=== PATIENT | female | born 1950 | race Caucasian/White ===

== ENCOUNTER → 2018-01-25 14:55 | Outpatient (CLI) | payer BC, MEDICARE, SELFPAY ==
--- NOTE | 2018-01-25 15:03 | XR_ITS ---
XR hip LT 2-3V w/pelvis HISTORY: ITS.REASON: LT HIP PAIN ORDERING PHYSICIAN: Bharath Rosario MD PATIENT AGE: 67 years COMPARISON: FINDINGS: Mild osteoarthritic changes involve the left hip. There is decrease in the joint space superiorly with osteophyte formation. There are osteoarthritic changes also at symphysis pubis with minimal osteoarthritis of the right hip and SI joints. No fracture or dislocation. No lytic or blastic change. 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
== END ==
PROVIDERS: PCP Family Medicine; Visit Provider Family Medicine
DX: M25.552 Pain in left hip (principal)
CPT/HCPCS: 73502

== ENCOUNTER → 2019-03-10 10:31 | Outpatient (CLI) | payer BC, MEDICARE, SELFPAY ==
--- NOTE | 2019-03-10 10:42 | XR_ITS ---
XR DEXA axial skeleton HISTORY: ITS.REASON: POST MENOPAUSAL ORDERING PHYSICIAN: Bharath Rosario MD PATIENT AGE: 68 years COMPARISON: None FINDINGS: The BMD measured at the Right femoral neck is 0.748 g/cm squared with a T score of -2.1. This is considered Osteopenic according to the World Health Organization criteria. Fracture risk is Moderate. Treatment is advised. IMPRESSION: Osteopenia with moderate fracture risk. Treatment is advised. Suggest follow-up exam February 2021
== END ==
PROVIDERS: PCP Family Medicine; Visit Provider Family Medicine
DX: Z78.0 Asymptomatic menopausal state (principal)
CPT/HCPCS: 77080

== ENCOUNTER → 2019-09-21 06:12 | Outpatient (CLI) | payer BC, MEDICARE, SELFPAY ==
--- NOTE | 2019-09-21 | CA_ITS ---
APPROVED REPORT Exam: Pharmacologic Technologist: shantanu melvin, Ht: 5 ft 0 in Wt: 170 lbs BSA: 1.74 m2 HR: 75 bpm BP: 185/101 mmHg Rhythm: NSR,OCCASIONAL PVC Indications: SOB Medical History Medical History: Hyperlipidemia, HTN, SOB Medications: Lisinopril,,,,, Lipitor,,,,, MeLOXICAM,,,,, DulOXETINE,,,,, Metopolol,,,,, Atiamt/hctz,,,,, Allergies: No known drug allergies Cardiac Risk Factors: HTN, Hyperlipidemia, SOB Stress Test Details Test: LEXISCAN HR Resting HR: 69 bpm Max Heart Rate (APMHR): 150 bpm Max HR Achieved: 96 bpm Target HR (85% APMHR): 127 bpm % of APMHR: 64 Recovery HR: 85 bpm BP Resting BP: 185.0/101.0 mmHg Max BP: 185.0/101.0 mmHg Recovery BP: 154.0/99.0 mmHg ECG Resting ECG: NSR,OCCASIONAL PVC Clinical Exercise duration: 04:04 min Highest Stage Achieved: Exercise capacity: 1.0 METs Stress ECG Conclusion SWITCHED FROM EXERCISE DUE TO LIMITED EXERCISE TOLERANCE. ONLY ABLE TO WALK 1 MINUTE ON SISSY PROTOCOL. STOPPING BECAUSE OF SOA. DURING INFUSION PATIENT HAD SOA,MILD NAUSEA AND MILD MALAISE. NO CHEST PAIN. NO ARRHYTHMIAS/ECTOPY. NO SIGNIFICANT ST-T CHANGES. UNREMARKABLE LEXISCAN STRESS. MYOVIEW IMAGES REPORTED SEPARATELY. Electronically signed by : Subhash Saunders, 09/26/2019 15:33:22
--- NOTE | 2019-09-21 06:40 | NM_ITS ---
APPROVED REPORT Exam: Nuclear Stress Test Indication: ANGINA,FATIGUE,SOA Patient Location: Outpatient Stress Tech: Radha Alexandra [place] Tech:Silvana Shi RANJEETSelma RT(R)(N) Ht: 5 ft 0 in Wt: 170 lbs Bra Size: 38 B HR: 75 bpm BP: 185/101 mmHg BSA: 1.74 m2 History: ANGINA,FATIGUE,SOA Procedure: Patient received a 0.4 mg of intravenous Lexiscan, resting heart rate 75 bpm, resting blood pressure 185/101 mmHg, with Lexiscan maximum heart rate achived was 93 bpm which is Less than 85 % of the maximum predicted heart rate and blood pressure was 167/102 mmHg. With Lexiscan, patient denied any complaint of chest pain. Electrocardiogram Resting electrocardiogram showed sinus rhythm, with Lexiscan there is less than 1.[address] segment depression noted from the baseline EKG. The EKG portion of the Lexiscan Myoview is nondiagnostic. Cardiac Stress and Resting SPECT Images: Cardiac Stress and Resting SPECT images were obtained using technetium 99m Myoview 32.2 mCi stress and 9.74 mCi at rest. Gated SPECT for analysis of segmental wall motion and calculation of the ejection fraction also done. Cardiac stress and resting SPECT images show uniform myocardial activity without segmental perfusion abnormality, computer derived ejection fraction is over 65% with no regional wall motion abnormality, right ventricle is normal size and contractility. Conclusion: 1. The EKG portion of the Lexiscan Myoview is nondiagnostic. 2. No scintigraphic evidence of reversible ischemia seen, computer derived ejection fraction is over 65% with no regional wall motion abnormality, right ventricle is normal size and contractility. 3. Normal Lexiscan Myoview study. Electronically signed by : Subhash Saunders, 09/29/2019 11:52:22
--- NOTE | 2019-09-21 08:56 | HMH.ITSHM ---
Current Home Medications as stated by this patient Cleopatra Carpenter or hospital insurance representative. [] METOPROLOL MELOXICAM TRIMT/HCTZ DULOXETINE LISINOPIRL ATORVASTATIN
== END ==
PROVIDERS: PCP Family Medicine; Visit Provider Family Medicine
DX: I20.8 Other forms of angina pectoris (principal)
CPT/HCPCS: 78452; 93017; A9502; J2785

== ENCOUNTER → 2019-10-04 13:27 | Outpatient (CLI) | payer BC, MEDICARE, SELFPAY ==
--- NOTE | 2019-10-04 13:39 | XR_ITS ---
PROCEDURE: XR CHEST 2V CLINICAL HISTORY: SHORTNESS OF BREATH Shortness of breath and cough, former smoker COMPARISON: CXR CHEST(2 VIEWS-NOT PORTABLE) from 02/13/2016 FINDINGS: The cardiomediastinal silhouette and pulmonary vascularity are within normal limits. There is a left-sided breast implant which causes some attenuation of the underlying lungs. This is not significantly changed. No lobar consolidation or collapse. No acute bony abnormalities. IMPRESSION: No acute findings. Dictated by: Cedric Stone MD 10/04/2019 14:02 Electronically signed by Cedric Stone MD in [place] 10/04/2019 14:02
== END ==
PROVIDERS: PCP Family Medicine; Visit Provider Family Medicine
DX: R06.02 Shortness of breath (principal)
CPT/HCPCS: 71046

== ENCOUNTER 2020-09-09 00:59 | Emergency (ER) | payer BC, MEDICARE, SELFPAY ==
[2020-09-09] VITALS (10 sets, daily range): BP systolic 111–193; BP diastolic 70–118; PULSE 61–75; RESP 17–28; TEMP 36.9–37.1; O2SAT 89–96; BMI 35.2
--- NOTE | 2020-09-09 | ECG_ITS ---
APPROVED REPORT Exam: Resting ECG HR:68 bpm ECG Measurements Heart Rate 68 AXES OR 178 P 43 QRSd 86 QRS 70 QT 398 T 88 QTc 423 Conclusion Normal sinus rhythm Normal ECG Electronically signed by : Alhaji Mccarthy, 09/09/2020 19:09:23
--- NOTE | 2020-09-09 01:02 | XR_ITS ---
PROCEDURE: XR CHEST 2V CLINICAL HISTORY: SOA Shortness of air. History of breast cancer COMPARISON: No exams were available for comparison FINDINGS: Borderline cardiomegaly. The lungs are clear without infiltrates, suspicious nodules, or pleural effusions. Fibrotic changes are present in the left perihilar region. Prior left mastectomy with breast implant Degenerative change thoracic spine IMPRESSION: Borderline cardiomegaly otherwise negative Dictated by: Cedric Stone MD 09/09/2020 05:22 Cedric Stone MD in [place] 09/09/2020 05:22
[2020-09-09 01:20] LABS: ABG Base Excess 4.9 mmol/L (-2.4-2.3); ABG HCO3 29.3 mmhg (22.0-26.0); ABG Oxygen Saturation 93 % (90-100); ABG PCO2 45.4 mmhg (35.0-45.0); ABG PH 7.43 mmol/L (7.35-7.45); ABG PO2 63.4 mmhg (80-100); ABG TCO2 30.6 mmhg (23-27)
[2020-09-09 01:20] LABS: Basophils # 0.1 K/mm3 (0-0.2); Basophils % 0.9 % (0.1-2.0); Eosinophils # 0.4 K/mm3 (0.0-0.4); Hematocrit 45.7 % (37.0-47.0); Hemoglobin 15.1 g/dL (12.2-16.2); Lymphocytes # 3.8 K/mm3 (0.7-4.5); Lymphocytes % 31.3 % (10-50); Mean Corpuscular HGB Conc 33.1 g/dL (31.8-35.4); Mean Corpuscular Hemoglobin 32.3 pg (27.0-31.2); Mean Corpuscular Volume 97.6 fl (81-99); Mean Platelet Volume 8.5 fl (7.4-10.4); Monocytes # 0.9 K/mm3 (0.1-1.0); Monocytes % 7.1 % (1.7-9.3); Neutrophils % 57.8 % (37.0-80.0); Platelet Count 265 K/mm3 (142-424); Red Blood Count 4.69 M/mm3 (4.20-5.40); Red Cell Distribution Width 12.8 % (11.5-17.5); White Blood Count 12.1 K/mm3 (4.8-10.8)
[2020-09-09 01:21] LABS: Allen's Test Y; Oxygen R/A %; Source R/R
[2020-09-09 01:35] LABS: Lactic Acid 1.7 mmol/L (0.7-2.1)
[2020-09-09 01:36] LABS: Alanine Aminotransferase 27 U/L (12-78); Albumin Level 4.4 g/dl (3.5-5.0); Albumin/Globulin Ratio 1.4 (1.1-1.8); Alkaline Phosphatase 79 U/L (38-126); Anion Gap 12.4 mEq/L (5-15); Aspartate Amino Transferase 34 U/L (14-36); Bilirubin,Total 0.3 mg/dl (0.2-1.3); Blood Urea Nitrogen 26 mg/dl (7-17); Calcium 9.6 mg/dl (8.4-10.2); Carbon Dioxide 32 mmol/L (22.0-30.0); Chloride 99 mmol/L (98-107); Creatinine Clearance Estimated 67 mL/min (50-200); Estimated Glomerular Filt Rate 55 ml/min (>60); GFR (African American) 66 ML/MIN (>60); Globulin 3.1 g/dL (1.3-3.2); Glucose 142 mg/dl (74-100); Potassium 4.4 mmoL/L (3.5-5.1); Sodium 139 mmol/L (136-145); Total Protein,Serum 7.5 g/dl (6.3-8.2)
[2020-09-09 01:42] LABS: C-Reactive Protein 3.3 mg/L (0-4)
--- NOTE | 2020-09-09 01:47 | HMH.EDSOB ---
ED Disposition Clinical Impression: Hypertensive emergency Dyspnea Qualifiers: Dyspnea type: shortness of breath Qualified Code(s): R06.02 - Shortness of breath Disposition: Home, Self-Care Condition on Discharge: Good Instructions: DI for Shortness of Breath Additional Instructions: see pcp for follow up Referrals: Bharath Rosario MD [Primary Care Provider] - - Critical Care Critical Care Time: No Attestation: On 09/09/20, the high probability of a clinically significant, sudden or life threatening deterioration of the following system(s) required my full and direct attention, intervention and personal management. The time I documented below is in addition to time spent performing reported procedures but includes the following listed in this critical care notation. Medical Decision Making - Medical Records Medical records reviewed: Yes: I reviewed the patient's medical records. - Kareem Inquiry Pt receiving controlled substance: No Vital Signs: 09/09/20 00:59 09/09/20 01:30 09/09/20 02:00 Temperature 98.8 F Temperature Source Oral Pulse Rate [Left Radial] 75 62 64 Respiratory Rate 28 H 21 21 Blood Pressure [Right Arm] 193/118 H 145/79 H 120/70 Blood Pressure Mean [Right Arm] 143 101 86 Blood Pressure Source [Right Arm] Automatic Cuff Automatic Cuff Automatic Cuff Blood Pressure Position [Right Arm] Supine Supine Supine 02 Sat by Pulse Oximetry 92 L 95 96 Oxygen Delivery Method Room Air Nasal Cannula Nasal Cannula Oxygen Flow Rate (LPM) 1 1 09/09/20 02:27 09/09/20 03:00 09/09/20 03:30 Temperature Temperature Source Pulse Rate [Left Radial] 61 62 64 Respiratory Rate 20 22 17 Blood Pressure [Right Arm] 121/73 127/87 132/84 Blood Pressure Mean [Right Arm] 89 100 100 Blood Pressure Source [Right Arm] Automatic Cuff Automatic Cuff Automatic Cuff Blood Pressure Position [Right Arm] Supine Supine Supine 02 Sat by Pulse Oximetry 90 L 90 L 89 L Oxygen Delivery Method Room Air Room Air Oxygen Flow Rate (LPM) 09/09/20 04:00 09/09/20 04:30 09/09/20 05:00 Temperature Temperature Source Pulse Rate [Left Radial] 64 68 67 Respiratory Rate 26 H 17 22 Blood Pressure [Right Arm] 127/73 111/72 119/85 Blood Pressure Mean [Right Arm] 91 85 96 Blood Pressure Source [Right Arm] Automatic Cuff Automatic Cuff Automatic Cuff Blood Pressure Position [Right Arm] Supine Supine Supine 02 Sat by Pulse Oximetry 91 L 90 L 89 L Oxygen Delivery Method Room Air Room Air Room Air Oxygen Flow Rate (LPM) - Lab Data Lab results reviewed: Yes: I reviewed the patient's lab results. Lab Results 09/09/20 01:05: WBC 12.1 H, RBC 4.69, Hgb 15.1, Hct 45.7, MCV 97.6, MCH 32.3 H, MCHC 33.1, RDW 12.8, Plt Count 265, MPV 8.5, Neut % (Auto) 57.8, Lymph % (Auto) 31.3, [place] % (Auto) 7.1, Eos % (Auto) 3.0, Baso % (Auto) 0.9, Neut # (Auto) 7.0, Lymph # (Auto) 3.8, [place] # (Auto) 0.9, Eos # (Auto) 0.4, Baso # (Auto) 0.1, ESR 15 09/09/20 01:05: Sodium 139, Potassium 4.4, Chloride 99, Carbon Dioxide 32 H, Anion Gap 12.4, BUN 26 H, Creatinine 1.00, Estimated Creat Clear 67, Estimated GFR 55 L, Est GFR ( Amer) 66, Glucose 142 H, Calcium 9.6, Total Bilirubin 0.3, AST 34, ALT 27, Alkaline Phosphatase 79, Troponin I < 0.01, C-Reactive Protein 3.3, Total Protein 7.5, Albumin 4.4, Globulin 3.1, Albumin/Globulin Ratio 1.4, Procalcitonin 0.066 09/09/20 01:05: Lactate 1.7 09/09/20 01:05: SARS-CoV-2 IgG Ab (Rapid) Negative, SARS-CoV-2 IgM Ab (Rapid) Negative 09/09/20 01:05: NT-Pro-B Natriuret Pep 305 H 09/09/20 01:19: Specimen Source R/r, O2 % R/a, ABG pH 7.43, ABG pCO2 45.4 H, ABG pO2 63.4 L, ABG HCO3 29.3 H, ABG Total CO2 30.6 H, ABG O2 Saturation 93, ABG Base Excess 4.9 H, Cedric Test Y 09/09/20 03:53: Troponin I < 0.01 Result diagrams: 09/09/20 01:05 09/09/20 01:05 Orders (Tests/Meds): ED MEDICATIONS Generic Name Dose Route Start Last Admin Trade Name Freq PRN Reason Stop Dose Admin Sodium Chloride 1,00
[2020-09-09 01:48] LABS: NT Pro Brain Natriuretic Pep. 305 pg/mL (0-125)
[2020-09-09 01:50] LABS: Erythrocyte Sedimentation Rate 15 mm/hr (0-30)
[2020-09-09 01:51] LABS: Coronavirus 19 IgG Antibody Negative (Negative); Coronavirus 19 IgM Antibody Negative (Negative)
[2020-09-09 01:52] LABS: Troponin I < 0.01 ng/ml (0.00-0.034)
[2020-09-09 01:55] LABS: Procalcitonin 0.066 ng/mL (0.0-2.0)
--- NOTE | 2020-09-09 02:11 | PC.NURSE ---
Radiology notified of Chest CT for PE protocol
--- NOTE | 2020-09-09 02:11 | CT_ITS ---
PROCEDURE: CT ANGIO CHEST CLINCIAL INDICATION: soa Shortness of breath, previous smoker, leaky heart valve, breast cancer history COMPARISON: CR XR CHEST 2V from 09/09/2020 TECHNIQUE: IV Contrast: 70ML Isovue 370 Axial images obtained with sagittal and coronal reformats. All CT scans at the facility use one or more dose reduction, viz: automated exposure control, ma/kV adjustment per patient size (including targeted exams where dose is matched to indication, i.e. head), or iterative reconstruction technique. FINDINGS: The left lobe of the thyroid gland is enlarged measuring 4.6 x 2.7 cm. This is causing some compression upon the trachea with mild tracheal deviation toward the right. Small focus of low density is present in the central aspect of the thyroid gland measuring approximately 8 mm. No mediastinal or hilar mass. There is mild ectasia of the ascending aorta at 3.8 cm. No evidence of pulmonary embolus aortic aneurysm or dissection. Atelectatic or fibrotic changes are present in the right middle lobe in the lingula. No lobar consolidation or collapse is evident. There is mild diffuse mosaic attenuation of the lungs which could be due to air trapping. No acute bony findings. Degenerative changes are present in the thoracic spine. Prior left mastectomy with a left breast implant present IMPRESSION: Mild diffuse mosaic attenuation of the lungs suggesting air trapping. No lobar consolidation. Enlarged left lobe of the thyroid gland Dictated by: Cedric Stone MD 09/09/2020 05:38 Cedric Stone MD in [place] 09/09/2020 05:38
[2020-09-09 05:22] LABS: Troponin I < 0.01 ng/ml (0.00-0.034)
== END 2020-09-09 05:59 | disposition home or self-care (01) ==
PROVIDERS: Emergency Provider Emergency Medicine; PCP Family Medicine
DX: I16.1 Hypertensive emergency (principal); Z01.84 Encounter for antibody response examination; Z87.891 Personal history of nicotine dependence; Z96.641 Presence of right artificial hip joint; Z96.642 Presence of left artificial hip joint; Z79.899 Other long term (current) drug therapy; Z90.12 Acquired absence of left breast and nipple
CPT/HCPCS: 71046; 71275; 80053; 82803; 83605; 83880; 84145; 84484; 85025; 85651; 86140; 86328; 87040; 87205; 93005; 96365; 96375; 99284; Q9967

== ENCOUNTER 2024-07-20 11:41 | Day surgery (SDC) | payer MEDICARE, SELFPAY ==
[2024-07-18 16:08] VITALS: BMI 36.1
[2024-07-20] MEDS: LACTATED RINGERS 1000ML 1,000 ML 25 ML IV (12:31)
[2024-07-20 12:33] VITALS: BP 129/69; PULSE 58; RESP 18; TEMP 36.6; O2SAT 58
--- NOTE | 2024-07-20 13:26 | P.PNANES_ITS ---
[facility] Disclaimer: The information contained in this section may have been updated after the patient was seen, as this information can be updated by other users. Medical History Dysphagia GERD (gastroesophageal reflux disease) History of bone cancer History of breast cancer H/O: HTN (hypertension) Surgical History History of hip surgery History of carpal tunnel release History of bilateral knee replacement History of mastectomy Family History Other No significant family history Social History Smoking Status: Former smoker alcohol intake: never substance use type: denies use current occupational status: retired Travel in the last 8 weeks: None [facility] Anesthesia Checklist Patient Identification Patient Identification: Arm Band Structural Data Admitted From: Home Planned Operative Procedure/s: EGD Consent for Planned Operative Procedure(s) Verified: Yes Verified Documents: Surgical Consent and History and Physical NPO Status Verified Time NPO: 00:00 Additional verifications Anesthesia Reactions: No Airway Assessment Mallampati Score:: Class II C-Spine Mobility Assessed: Yes TMJ Mobility Assessed: Yes Dentition: Poor Dentition Neurological Assessment Level of Consciousness: Awake, Alert and Appropriate Anesthesia Plan Anesthesia Risk discussed: Yes Anesthesia Plan: Verified ASA Class: III Anesthesia Type: MAC
[2024-07-20 13:46] VITALS: O2SAT 100
--- NOTE | 2024-07-20 13:55 | P.HP_ITS ---
History of Present Illness *Admission Date: 07/20/24 *Reason for visit:: Anemia/GI blood loss *History of present illness: Mrs. Carpenter is a 74-year-old female who is here for diagnostic upper endoscopy secondary to anemia and presumed GI blood loss. The examination is deemed medically necessary for EGD. The patient has been seen, interviewed and examined prior to the procedure by both myself and the anesthesia provider. [facility] Disclaimer: The information contained in this section may have been updated after the patient was seen, as this information can be updated by other users. Medical History (Updated 07/20/24 @ 13:56 by Constantino Fernández II, MD) Dysphagia GERD (gastroesophageal reflux disease) History of bone cancer History of breast cancer H/O: HTN (hypertension) Surgical History History of hip surgery History of carpal tunnel release History of bilateral knee replacement History of mastectomy Family History Other No significant family history Social History (Updated 07/20/24 @ 13:27 by Lico Michael CRNA) Smoking Status: Former smoker alcohol intake: never substance use type: denies use current occupational status: retired Travel in the last 8 weeks: None Other Medical History Have you received the Flu Vaccine for this season: No Have you received the Pneumonia Vaccine: Yes Review of Systems Review of Systems Review of systems (narrative): Negative *Cardiovascular Comments: Negative *Gastrointestinal Comments: Negative *Genitourinary Comments: Negative *Musculoskeletal Comments: Negative *Neurologic Comments: Negative Meds Home Medications and Allergies Home Medications ?Medication ?Instructions ?Recorded ?Confirmed ?Type atorvastatin 40 mg tablet 40 mg PO HS High cholesterol 09/09/20 07/18/24 History buspirone 5 mg tablet 5 mg PO BID mood 09/09/20 07/18/24 History duloxetine 30 mg capsule,delayed 30 mg PO DAILY mood 09/09/20 07/18/24 History release lisinopril 20 mg tablet 20 mg PO DAILY High blood pressure 09/09/20 07/18/24 History meloxicam 15 mg tablet 15 mg PO DAILY gut health 09/09/20 07/18/24 History metoprolol succinate 50 mg 50 mg PO DAILY High blood pressure 09/09/20 07/18/24 History tablet,extended release 24 hr triamterene 37.5 1 each PO DAILY High blood pressure 09/09/20 07/18/24 History mg-hydrochlorothiazide 25 mg tablet New Prescriptions to Start Prescriptions: Allergies Allergy/AdvReac Type Severity Reaction Status Date / Time No Known Drug Allergies Allergy Unknown Verified 09/09/20 01:07 Exam Data for Last 24 hours Vital signs and Labs for Last 24 Hours: Temp Pulse Resp BP Pulse Ox O2 Del Method O2 Flow Rate 97.9 F 58 L 18 129/69 58 L Nasal Cannula 5 07/20/24 12:33 07/20/24 12:33 07/20/24 12:33 07/20/24 12:33 07/20/24 12:33 07/20/24 13:46 07/20/24 13:46 I & O for Last 24 hours: Intake & Output 07/17/24 07/18/24 07/19/24 07/20/24 23:59 23:59 23:59 23:59 Weight 185 lb *Routine HEENT Exam Head: Present normocephalic Eye: Present EOMI and PERRL ENT: Present mucous membranes moist *Routine Neck Exam Neck: Present supple *Routine Respiratory Exam Respiratory: Present CTA bilaterally *Routine Cardiovascular Exam Cardiovascular: Present RRR *Routine Abdominal Exam Abdominal: Present soft and normoactive bowel sounds; Absent tenderness *Routine Rectal Exam Rectal:: deferred *Routine Genitalia Exam Genitalia:: deferred *Routine Extremities Exam Extremities: Absent cyanosis, clubbing or edema *Routine Skin Exam Skin: Present warm; Absent rash *Routine Neurological Exam Neurological: Present alert and oriented X3 Assessment and Plan *Assessment and plan (1) Anemia due to gastrointestinal blood loss: Status: Acute Category: Medical Code(s): D50.0 - Iron deficiency anemia secondary to blood loss (chronic) (2) Epigastric pain: Status: Acute Category: Medical Code(s): R10.13 - Epigastric pain Plan A/P: 1. Anemia secondary to chronic GI blood loss is the preprocedural diagnosis. The patient will be anesthetized/sedated using MAC sedation. The patient has been seen and examined. Cardiac and lung assessment prior to the examination is stable. Proceed with planned EGD
--- NOTE | 2024-07-20 13:57 | P.PCN_ITS ---
[facility] Procedure Note Date: 07/20/24 Time: 14:07 Procedure Note:: Upper Endoscopy Procedure Report: Esophagogastroduodenoscopy with cold biopsies and TTS balloon dilation Endoscopost: Constantino Fernández II, MD Referring Physician: SRIDHAR Lange ([id number], [id number], [place] [address]) Date of Procedure: July 20, 2024 Equipment: Olympus GIF 190 standard upper endoscope Sedation: MAC sedation Indications: Mrs. Carpenter is a 74-year-old female who is here for diagnostic upper endoscopy secondary to a drop in hemoglobin. I do not have any outside reports but apparently her recent hemoglobin was 8.4. She does have widely metastatic cancer to the bone presumably secondary to breast cancer. The patient reports no melena, hematochezia or bright red blood per rectum. I do not have results of Hemoccult testing and the patient does not know whether she has had this. The patient is on chemotherapy and has had XRT. Her last colonoscopy was 10 years ago and she has never had an upper endoscopy. She does report some epigastric abdominal discomfort and dyspepsia. This is relieved by Jody-Lignum and sometimes Coke or carbonated beverages. The patient does get some bloating and gassiness. She has lost 15 pounds. She reports some globus and mild dysphagia. Procedure: Prior to the procedure, a history and physical exam was performed, and patient's medications and allergies were reviewed. The risks, benefits and alternatives of the sedation and procedure were discussed with the patient. All questions were answered and informed consent was obtained. The patient was brought to the procedure room. Patient identification and proposed procedure were verified by the physician and the nurse. The patient was placed in a left lateral decubitus position and the scope was passed under direct vision. Throughout the procedure, the patient's blood pressure, pulse, and oxygen saturations were monitored continuously. The upper GI endoscopy was accomplished without difficulty. The patient tolerated the procedure well. Findings: The scope was passed directly into the upper esophagus and advanced to the fourth portion of the duodenum and proximal jejunum. There were no angiodysplasias or duodenal ulcerations or erosions.. The post bulbar duodenum and duodenal bulb were normal with normal mucosa and conniventes. The scope was withdrawn through a normal duodenal bulb and pylorus into the stomach. There was mild to moderate linear reactive gastropathy with some linear erosions. This was felt to be bile reactive gastropathy with bile reflux (I will inquire about NSAIDs). There were no gastric ulcerations. Upon retroflexion there was a small 1 to 2 cm hiatal hernia. The scope was then withdrawn into the esophagus. There were 1 or 2 short tongues of salmon-colored mucosa suggestive of short segment Geiger's esophagus. Biopsies were obtained from the distal esophagus of these tongues of Geiger's. There were tertiary contractions and evidence of moderate esophageal dysmotility. The entire esophagus was dilated to 60 Romansh/20 mm with a TTS hydrostatic balloon. There was minor resistance at the cricopharyngeus. The remainder of the esophageal mucosa was normal. Impression: 1. Linear erosive reactive gastropathy (bile reflux versus NSAID gastropathy) 2. Nonerosive GERD with possible short segment Geiger's esophagus, moderate esophageal dysmotility and very small sliding hiatal hernia Plan: I will inquire about NSAIDs. There were no gastric ulcerations, AVMs or other upper GI sources of bleeding other than erosive gastropathy. I would recommend Hemoccult testing. She will likely need parenteral iron replacement. The patient has not had colonoscopy in 10 years. Based upon the advanced nature of her cancer, I am not certain this is warranted unless she could have bleeding etiology from the colon. I will inquire about any recent PET scan that may give us a clue if there is hypermetabolic abnormality of colon. Unfortunately, I do not have records.
[2024-07-20 14:13] VITALS: BP 115/76; PULSE 67; RESP 18; TEMP 36.5; O2SAT 95
[2024-07-20 14:23] VITALS: BP 104/74; PULSE 73; RESP 18; O2SAT 96
[2024-07-20 14:33] VITALS: BP 129/62; PULSE 64; RESP 18; O2SAT 98
[2024-07-20 14:58] VITALS: BP 128/60; PULSE 65; RESP 18; O2SAT 98
== END 2024-07-20 14:58 | disposition home or self-care (01) ==
PROVIDERS: Visit Provider Internal Medicine Gastroenterology
PROC: 0DJ08ZZ Inspection of Upper Intestinal Tract, Via Natural or Artificial Opening Endoscopic (ICD-10-PCS; CPT 43235; principal; 2024-07-20 13:30)
DX: D50.0 Iron deficiency anemia secondary to blood loss (chronic) (principal); R10.13 Epigastric pain; Z85.3 Personal history of malignant neoplasm of breast; Z85.830 Personal history of malignant neoplasm of bone; R13.10 Dysphagia, unspecified; R14.0 Abdominal distension (gaseous); K31.9 Disease of stomach and duodenum, unspecified; K44.9 Diaphragmatic hernia without obstruction or gangrene; K21.9 Gastro-esophageal reflux disease without esophagitis; K22.70 Barrett's esophagus without dysplasia; K22.4 Dyskinesia of esophagus
CPT/HCPCS: 43239; 43249; C1726; J7120

== ENCOUNTER 2024-09-20 23:18 | Emergency (ER) | payer MEDICARE, SELFPAY ==
[2024-09-20 23:20] VITALS: BP 105/74; PULSE 61; RESP 30; TEMP 36.7; O2SAT 80; BMI 35.2
--- NOTE | 2024-09-20 23:30 | ECG_ITS ---
APPROVED REPORT Exam: Resting ECG HR:90 bpm ECG Measurements Heart Rate 90 AXES AL 157 P 41 QRSd 88 QRS 56 QT 363 T 54 QTc 410 Conclusion SINUS RHYTHM WITH SINUS ARRHYTHMIA MINIMAL ST DEPRESSION [0.025+ mV ST DEPRESSION] BORDERLINE ECG No STEMI Electronically signed by : ANDREW TONG, 09/22/2024 06:59:45
--- NOTE | 2024-09-20 23:30 | CT_ITS ---
PROCEDURE INFORMATION: Exam: CTA Chest With Contrast Exam date and time: 09/21/2024 1:36 AM Age: 74 years old Clinical indication: Shortness of breath; Additional info: SOA TECHNIQUE: Imaging protocol: Computed tomographic angiography of the chest with contrast. Exam focused on the arteries. 3D rendering (Not supervised by radiologist): MIP and/or 3D reconstructed images were created by the technologist. Radiation optimization: All CT scans at this facility use at least one of these dose optimization techniques: automated exposure control; mA and/or kV adjustment per patient size (includes targeted exams where dose is matched to clinical indication); or iterative reconstruction. Contrast material: ISO 370; Contrast volume: 80 ml; Contrast route: INTRAVENOUS (IV); COMPARISON: CT ANGIO CHEST PE PROTOCOL 09/21/2024 1:36 AM FINDINGS: Pulmonary arteries: Limited evaluation of the peripheral pulmonary artery branches due to motion artifact and spatial resolution limitations. Decreased enhancement of peripheral right lobe pulmonary artery branches which may represent pulmonary emboli. RV/LV ratio is 0.86. Aorta: Ectasia of the ascending thoracic aorta with luminal caliber of 3.9 cm. No aortic aneurysm. No aortic dissection. Lungs: There is motion through the lungs. 3.0 x 2.1 cm focal pleural-based opacity of the dorsal inferior aspect of the right lower lobe. 1.5 x 1.2 cm spiculated nodule of the inferior dorsal aspect of the right upper lobe abuts the major fissure. 1.4 x 0.7 cm nodule with subtle spiculations of the lateral upper aspect of the right upper lobe. 1.1 x 1.0 cm right upper lobe nodule abutting the anterior pleura. Several scattered subcentimeter nodules of the right lung. Subcentimeter benign calcified granuloma of the left upper lobe. Small scattered areas of discoid atelectasis bilaterally without pulmonary consolidation. Pleural spaces: No pneumothorax. No pleural effusion. Heart: Mild cardiomegaly. No pericardial effusion. Lymph nodes: No enlarged lymph nodes. Subcentimeter calcified left hilar lymph nodes. Bones/joints: Multiple scattered areas of sclerotic foci of the thoracic spine related to metastatic foci. The T4 and T6 vertebral bodies are completely sclerotic sclerosis extending to the pedicles likely metastatic involvement. Left shoulder arthroplasty hardware noted. Motion artifact noted through ribs bilaterally. Bilateral chronic appearing fractures noted. Calcification of the right anterolateral aspect of the canal at the T7-T8 level with central canal stenosis may represent a calcified disc. Soft tissues: Postsurgical change of the left thyroid lobe. There is a collapsed left breast prosthesis. IMPRESSION: 1. Although there is limited evaluation of the peripheral pulmonary artery branches due to motion artifact, there is suspicion of pulmonary emboli within peripheral right lower lobe pulmonary artery branches. 2. Multiple nodules/masses of the right lung and sclerotic foci of the thoracic spine likely related to metastatic lesions. 3. Subcentimeter calcified left hilar lymph nodes. 4. Calcification of the right anterolateral aspect of the canal at the T7-T8 level with central canal stenosis may represent a calcified disc. 5. Collapsed left breast prosthesis. Findings were discussed with Dr. Curtis 09/21/2024 1:54 am.
[2024-09-20 23:33] VITALS: BP 105/39; RESP 26; O2SAT 95
[2024-09-20 23:38] VITALS: BP 90/42; PULSE 90; RESP 28; O2SAT 94
--- NOTE | 2024-09-20 23:42 | CT_ITS ---
PROCEDURE INFORMATION: Exam: CT Head Without And With Contrast Exam date and time: 09/21/2024 1:30 AM Age: 74 years old Clinical indication: Stroke-like symptoms; Altered mental status/memory loss; Additional info: AMS, known metastatic CA TECHNIQUE: Imaging protocol: Computed tomography of the head without and with contrast. Radiation optimization: All CT scans at this facility use at least one of these dose optimization techniques: automated exposure control; mA and/or kV adjustment per patient size (includes targeted exams where dose is matched to clinical indication); or iterative reconstruction. Contrast material: ISOVUE; Contrast volume: 100 ml; Contrast route: IV; COMPARISON: No relevant prior studies available. FINDINGS: Brain: Atrophy and chronic small vessel ischemic changes. No hemorrhage. No mass effect or midline shift. Small serpiginous calcifications in the left occipital lobe could be due to laminar necrosis from prior infarct or calcifications with an associated underlying mass. No comparison studies are available no intracranial hemorrhage. Cerebral ventricles: No ventriculomegaly. Paranasal sinuses: Visualized sinuses are unremarkable. No fluid levels. Mastoid air cells: Visualized mastoid air cells are well aerated. Bones: Unremarkable. No acute fracture. Soft tissues: Unremarkable. IMPRESSION: Small serpiginous calcifications in the left occipital lobe could be due to laminar necrosis from prior infarct or calcifications with an associated underlying mass. No comparison studies are available . No intracranial hemorrhage. ASSESSMENT: ASPECTS ([facility] Stroke Program Early CT Score) is 10.
--- NOTE | 2024-09-20 23:49 | CT_ITS ---
PROCEDURE INFORMATION: Exam: CT Abdomen And Pelvis With Contrast Exam date and time: 09/21/2024 1:36 AM Age: 74 years old Clinical indication: Other: AMS; Additional info: AMS, known met CA TECHNIQUE: Imaging protocol: Computed tomography of the abdomen and pelvis with contrast. 3D rendering (Not supervised by radiologist): MIP and/or 3D reconstructed images were created by the technologist. Radiation optimization: All CT scans at this facility use at least one of these dose optimization techniques: automated exposure control; mA and/or kV adjustment per patient size (includes targeted exams where dose is matched to clinical indication); or iterative reconstruction. Contrast material: ISOVUE; Contrast volume: 80 ml; Contrast route: IV; COMPARISON: CR HIPCMLT XR hip LT 2-3V w/pelvis 01/25/2018 3:09 PM FINDINGS: Lungs: Imaging through the lower thorax demonstrates a 3.0 x 2.1 cm focal pleural-based opacity of the dorsal inferior right lower lobe suboptimally characterized due to motion artifact. The heart is enlarged and incompletely imaged. Multilevel chronic left-sided rib fractures. Liver: Suboptimal evaluation through the superior aspect of the liver due to motion artifact. No evidence of focal hepatic lesions. Diffuse fatty infiltration of the liver noted. Gallbladder and biliary ducts: Normal. No calcified stones. No ductal dilation. Pancreas: Normal. No ductal dilation. Spleen: Normal. No splenomegaly. Adrenal glands: 1.1 cm x 1.0 cm right adrenal nodule. Kidneys and ureters: 1.7 x 1.5 cm simple cyst of the right kidney. 1.5 x 1.3 cm simple cyst of the left kidney. Additional subcentimeter cyst-like foci of the left kidney, too small to characterize. No hydronephrosis. Excretion of IV contrast by the collecting system limits evaluation for nephrolithiasis. Stomach and bowel: There is motion artifact through small and large bowel loops. Suggestion of a 1.1 x 0.8 cm diverticulum of the distal duodenal segment with internal high density, potential calcification or contrast from prior exam. No evidence of small bowel obstruction or colitis. Mild gaseous distension of the transverse colon and small bowel loops. Colon diverticulosis without diverticulitis. Appendix: No evidence of appendicitis. Intraperitoneal space: No free air. No significant fluid collection. Vasculature: Atherosclerotic calcification of the abdominal aorta, origin of the right renal artery and proximal iliac arteries. No abdominal aortic aneurysm. Lymph nodes: No enlarged lymph nodes. Urinary bladder: The urinary bladder is decompressed by Altman catheter. Reproductive: Unremarkable as visualized. Bones/joints: Left hip arthroplasty hardware noted. Scattered subcentimeter sclerotic foci of the visualized thoracolumbar spine and pelvis. There is a 1.6 x 1.0 cm sclerotic focus of the right lateral aspect of the T12 vertebral body. Compression deformity of the L4 vertebral body with 50-60% height loss also demonstrating diffuse heterogeneous sclerosis extending through the pedicles. Schmorl's node formation of the L4 inferior endplates. Vacuum disc phenomenon noted at L4-L5. Suggestion of a disc herniation at L4-L5. There is a levocurvature of the lumbar spine. Soft tissues: Unremarkable. IMPRESSION: 1. Multiple scattered sclerotic foci of the visualized thoracolumbar spine and pelvis which are suspicious for metastatic lesions. There is a compression deformity of the L4 vertebral body with 60% height loss and sclerosis of the vertebral body extending through the pedicles potentially pathologic metastatic compression deformity. The lumbar spine L4 compression deformity can be further characterized with MR imaging with and without contrast, if contrast is tolerated. A nuclear medicine bone scan may be helpful. 2. 3.0 x 2.1 cm focal pleural-based opacity of the dorsal inferior right lower lobe. Neoplasm not excluded. Please refer to the CT angio chest exam September 21, 2024 for further details. 3. 1.1 cm x 1.0 cm right adrenal nodule. Correlation with MR imaging adrenal protocol may be helpful for further characterization. 4. Diffuse fatty infiltration of the liver. 5. Colon diverticulosis without diverticulitis. COMMENTS: Consistent with the [employer]'s Incidental Findings Committee white paper (J Am Wilmar [employer]iol 2018): Any incidental renal lesion less than 1 cm or classified as too small to characterize, or any incidental cystic renal lesion characterized as simple-appearing, is likely benign. No follow-up imaging is recommended for these lesions per consensus recommendations based on imaging criteria.
[2024-09-20 23:59] LABS: VBG Base Excess 8.5 mmol/L (-2.4-2.3); VBG HCO3 33.6 mmol/L (23-30); VBG Oxygen Saturation 32.4 % (50-70); VBG PH 7.38 mmol/L (7.31-7.41); VBG Total CO2 35.4 mmol/L (23-27)
[2024-09-21] VITALS (7 sets, daily range): BP systolic 90–125; BP diastolic 42–94; PULSE 90–100; RESP 22–26; TEMP 37.2; O2SAT 91–96
[2024-09-21 00:01] LABS: VBG PCO2 58.1 mmol/L (35-51)
[2024-09-21] MEDS: IPRATROPIUM/ALBUTEROL 3 ML NEB 9 ML IH (00:02)
[2024-09-21 00:14] LABS: Lactic Acid 1.3 mmol/L (0.7-2.1)
[2024-09-21 00:15] LABS: Alanine Aminotransferase 16 U/L (12-78); Albumin Level 3.7 g/dl (3.5-5.0); Albumin/Globulin Ratio 1.3 (1.1-1.8); Alkaline Phosphatase 82 U/L (38-126); Aspartate Amino Transferase 28 U/L (14-36); Bilirubin,Total 0.5 mg/dl (0.2-1.3); Blood Urea Nitrogen 37 mg/dl (7-17); Calcium 8.9 mg/dl (8.4-10.2); Chloride 96 mmol/L (98-107); Creatinine Clearance Estimated 57 mL/min (50-200); Estimated Glomerular Filt Rate 48 ml/min (>60); GFR (African American) 59 ML/MIN (>60); Globulin 2.8 g/dL (1.3-3.2); Glucose 123 mg/dl (74-100); Total Protein,Serum 6.5 g/dl (6.3-8.2)
[2024-09-21 00:21] LABS: Carbon Dioxide 36 mmol/L (22.0-30.0)
[2024-09-21 00:26] LABS: NT Pro Brain Natriuretic Pep. 477 pg/mL (0-450)
[2024-09-21 00:37] LABS: Hematocrit 28.5 % (37.0-47.0); Hemoglobin 9.7 g/dL (12.2-16.2); Mean Corpuscular Hemoglobin 40.1 pg (27.0-31.2); Mean Corpuscular Volume 117.8 fl (81-99); Red Blood Count 2.42 M/mm3 (4.20-5.40); White Blood Count 4.5 K/mm3 (4.8-10.8)
[2024-09-21 00:38] LABS: Basophils # 0.1 K/mm3 (0-0.2); Basophils % 1.1 % (0.1-2.0); Eosinophils # 0.2 K/mm3 (0.0-0.4); Eosinophils % 5.1 % (0.1-12.0); Lymphocytes # 1.7 K/mm3 (0.7-4.5); Lymphocytes % 38.2 % (10-50); Mean Platelet Volume 9.4 fl (7.4-10.4); Monocytes # 0.4 K/mm3 (0.1-1.0); Monocytes % 9.6 % (1.7-9.3); Neutrophils % 44.7 % (37.0-80.0); Platelet Count 249 K/mm3 (142-424)
[2024-09-21 00:39] LABS: Ethyl Alcohol < 10 mg/dl (0-10); Troponin I < 0.01 ng/ml (0.00-0.034)
[2024-09-21 00:40] LABS: Anion Gap 10.9 mEq/L (5-15); Potassium 4.9 mmoL/L (3.5-5.1); Sodium 138 mmol/L (136-145)
[2024-09-21 00:54] LABS: Coronavirus 19, PCR Not Detected (NotDetected); Human Rhinovirus Not Detected (NotDetected); Influenza A, PCR Not Detected (NotDetected); Influenza B, PCR Not Detected (NotDetected); Respiratory Syncytial Virus Not Detected (NotDetected)
[2024-09-21] MEDS: LACTATED RINGERS 1000ML 1,000 ML 999 ML IV (00:55)
[2024-09-21] MEDS: LORazepam 1MG TABLET 1 MG PO (01:02)
[2024-09-21 01:07] LABS: Appearance,Urine CLEAR (Clear); Bilirubin,Urine Negative (Negative); Blood, Urine Negative (Negative); Color,Urine YELLOW (Yellow); Glucose,Urine (UA) Negative (Negative); Ketones,Urine TRACE (Negative); Leukocyte Esterase,Urine Negative (Negative); Microscopic, Urine URINE MICROSCOPIC (MICROSCOPIC); Nitrate,Urine Negative (Negative); Protein,Urine Negative (Negative); Specific Gravity, Urine 1.025 (1.005-1.030); Urobilinogen,Urine 0.2 EU/dl (0.2)
--- NOTE | 2024-09-21 01:09 | ED_ITS ---
Discharge Plan Disposition Patient Disposition: Xfer Short-Term Hosp Chief Complaint: Shortness of Breath/Dyspnea Prescriptions Prescriptions: No Action bismuth subcit I-[id number]-[id number] [Pylera] 140-125-125 mg capsule See Rx Instructions PO PER PKG DIR Qty: 120 0RF Rx Instructions: Please take 3 capsules by mouth 4 times daily for 10 days atorvastatin 40 MG tablet 40 mg PO HS buspirone 5 MG tablet 5 mg PO BID metoprolol succinate 50 MG tablet extended release 24 hr 50 mg PO DAILY meloxicam 15 MG tablet 15 mg PO DAILY lisinopril 20 MG tablet 20 mg PO DAILY triamterene-hydrochlorothiazid 1 EACH tablet 1 each PO DAILY duloxetine 30 MG capsule,delayed release(DR/EC) 30 mg PO DAILY Referrals Follow up/Referrals: Provider,Referral, MD [Primary Care Provider] - See instructions Clinical Impressions Clinical Impression: Dyspnea, Hypercarbia, Altered mental status, Hallucinations Stand Alone Forms Stand Alone Forms: Transfer Record - ED Print Language Print Language: Mongolian Discharge ED Provider: Melisa Curtis General Chief Complaint: Shortness of Breath/Dyspnea Stated Complaint: confusion Time Seen by Provider: 09/20/24 23:30 Mode of Arrival: Wheelchair Source of Information: Patient Limitations: No Limitations Description of Symptoms (Recalled from ER Triage Doc. by RN): Pt here with c/o AMS, ongoing for months, + soa. 80% on her normal 3 L. History of Present Illness HPI narrative: 74-year-old female with multiple comorbidities including known metastatic cancer, nasal cannula dependent secondary to cancer presents to the ER with family concerned about progressive altered mental status. Family reports patient has had mild waxing and waning confusion over the last few months however in the last week she has had more rapid progression of symptoms. Patient is unable to provide much history secondary to her confusion, and son at bedside provide the history. They report that patient does not have any known intracranial lesions but was recently treated with steroids for brain swelling . They also reports she has had some recent medication changes, unclear exactly what those are. Patient wears a fentanyl patch and receives other oral narcotic pain medication for management. They report today her confusion was the worst, she was very confused about who people around her were, and was reporting seeing family members who were not in the room. When she came to the ER, she was complaining of shortness of breath and smothering despite being on her nasal cannula at baseline. Family reports she has not had any nausea, vomiting, diarrhea, she has not been complaining of any specific pain. They are most concerned about the progressive confusion and hallucinations. They state the hallucinations are not new, they are just more persistent and more obvious in the last few days. Family states patient has not had fever, no new cough, she has not had any recent falls, she uses a wheelchair for ambulation. Patient receives most of her care at [facility] at . She is currently receiving radiation and takes cancer pills by mouth. Family does report that patient is increasingly paranoid and today actually did not swallow a few of her medications, hiding them under her tongue, stating she believed someone was trying to poison her. Patient is not able to describe to me why she is here other than she feels short of breath. She does not know where she is or the year. She has reportedly not made any suicidal or homicidal threats. Family is not concerned about their safety, however they are concerned about her behavior especially now that she is cheeking some of her pills. Related Data Home Medications ?Medication ?Instructions ?Recorded ?Confirmed atorvastatin 40 mg tablet 40 mg PO HS High cholesterol 09/09/20 07/18/24 buspirone 5 mg tablet 5 mg PO BID mood 09/09/20 07/18/24 duloxetine 30 mg capsule,delayed 30 mg PO DAILY mood 09/09/20 07/18/24 release lisinopril 20 mg tablet 20 mg PO DAILY High blood pressure 09/09/20 07/18/24 meloxicam 15 mg tablet 15 mg PO DAILY gut health 09/09/20 07/18/24 metoprolol succinate 50 mg 50 mg PO DAILY High blood pressure 09/09/20 07/18/24 tablet,extended release 24 hr triamterene 37.5 1 each PO DAILY High blood pressure 09/09/20 07/18/24 mg-hydrochlorothiazide 25 mg tablet Previous Rx's ?Medication ?Instructions ?Recorded bismuth subcit K 140 See Rx Instructions PO PER PKG DIR 07/25/24 mg-metronidazole 125 #120 caps mg-tetracycline 125 mg cap (Pylera) Allergies Allergy/AdvReac Type Severity Reaction Status Date / Time No Known Drug Allergies Allergy Unknown Verified 09/09/20 01:07 [facility] Disclaimer: The information contained in this section may have been updated after the patient was seen, as this information can be updated by other users. Medical History (Updated 09/21/24 @ 02:53 by Melisa Curtis MD) Dysphagia GERD (gastroesophageal reflux disease) History of bone cancer History of breast cancer H/O: HTN (hypertension) Surgical History History of hip surgery History of carpal tunnel release History of bilateral knee replacement History of mastectomy Family History Other No significant family history Social History (Updated 07/20/24 @ 13:27 by Lico Michael CRNA) Smoking Status: Unknown if ever smoked alcohol intake: never substance use type: denies use current occupational status: retired Travel in the last 8 weeks: None Have you lived/traveled outside [place] in past 30 days?: No Contact w/someone who lives/traveled outside US past 30 days?: No Exposure to someone with infectious disease in past 14 days?: No Do you have a fever (greater than 100.4 F or 38 C)?: No Have you tested positive for COVID-19: No Exposed to someone with COVID-19 in past 14 days?: No Do you have a sore throat?: No Do you have a cough?: No Do you have any weakness?: No Do you have any diarrhea?: No Are you experiencing any unusual bleeding?: No Do you have any muscle aches/pain?: No Do you have any abdominal pain?: No Are you experiencing loss of taste or smell?: No Other Medical History Have you received the Flu Vaccine for this season: No Have you received the Pneumonia Vaccine: Yes ROS Obtained: Yes Systems reviewed as appropriate & no additional complaints except as documented per HPI Physical Exam General General appearance: alert, anxious and obese Head Head exam: atraumatic and normocephalic Eye Eye exam: Present PERRL and EOMI ENT ENT exam: Present mucous membranes moist Neck Neck exam: Present normal inspection and full ROM Chest Chest inspection: Present symmetric chest wall rise Respiratory Respiratory exam: Present respiratory distress (Mild), wheezes and other (Patient is tachypneic, mild respiratory distress, difficult to obtain an oxygen saturation because she will not stay still, but she has brisk capillary refill, no cyanosis); Absent normal lung sounds bilaterally (Diminished breath sounds throughout, no appreciated rhonchi or rales) or stridor Cardiovascular Cardiovascular exam: Present regular rate and normal rhythm Abdominal Exam Abdominal exam: Present soft; Absent distention or tenderness Extremities Exam Extremities exam: Present full ROM and normal capillary refill; Absent edema Neurological Exam Neurological exam: Present alert; Absent oriented X3 (Oriented only to self, disoriented to the people in the room with her, disoriented to year, disoriented to location) or motor sensory deficit Psychiatric Psychiatric exam: Present anxious (Mildly agitated, anxious) Skin Skin exam: Present warm and dry HEART Score HEART Score HEART Score assessment performed?: Yes History (anamnesis): Slightly suspicious ECG: Non-specific disturbance Age: >65 years Risk factors: 1-2 risk factors Troponin: </= normal limit HEART Score: 4 Critical Care Critical Care Time Critical Care Time: No Medical Decision Making Medical Records Medical records reviewed: Yes I reviewed the patient's medical records. Kareem Inquiry Pt receiving controlled substance: No Vital Signs Vital Signs: 09/20/24 23:20 09/20/24 23:33 09/20/24 23:38 Temperature 98.0 F Temperature Source Tympanic Pulse Rate 90 Pulse Rate [Apical] 61 Respiratory Rate 30 H 26 H 28 H Blood Pressure 105/39 L 90/42 L Blood Pressure [Right Arm] 105/74 L Blood Pressure Mean 68 Blood Pressure Mean [Right Arm] 84 02 Sat by Pulse Oximetry 80 L 95 94 L Oxygen Delivery Method Nasal Cannula Nasal Cannula Nasal Cannula Oxygen Flow Rate (LPM) 3 4 4 09/21/24 00:04 09/21/24 00:55 09/21/24 01:01 Temperature Temperature Source Pulse Rate 100 H 94 H Pulse Rate [Apical] Respiratory Rate 24 26 H Blood Pressure 90/42 L 125/94 H 118/48 L Blood Pressure [Right Arm] Blood Pressure Mean 58 99 84 Blood Pressure Mean [Right Arm] 02 Sat by Pulse Oximetry 96 94 L Oxygen Delivery Method Nasal Cannula Nasal Cannula Oxygen Flow Rate (LPM) 4 4 09/21/24 01:08 09/21/24 01:48 09/21/24 02:00 Temperature Temperature Source Pulse Rate 100 H 96 H Pulse Rate [Apical] Respiratory Rate 24 22 Blood Pressure 102/70 L 108/59 L 115/66 Blood Pressure [Right Arm] Blood Pressure Mean 82 75 74 Blood Pressure Mean [Right Arm] 02 Sat by Pulse Oximetry 93 L 91 L 94 L Oxygen Delivery Method Nasal Cannula Nasal Cannula Nasal Cannula Oxygen Flow Rate (LPM) 4 4 4 Lab Data Labs: Lab Results 09/20/24 23:43: VBG pH 7.38, VBG pCO2 58.1 H, VBG pO2 21.0 L, VBG HCO3 33.6 H, V BG Total CO2 35.4 H, VBG O2 Saturation 32.4 L, VBG Base Excess 8.5 H, VBG Lactic Acid 2.0 09/20/24 23:51: WBC 4.5 L, RBC 2.42 L, Hgb 9.7 L, Hct 28.5 L, MCV 117.8 H, MCH 40.1 H*, MCHC 34.0, RDW 18.0 H, Plt Count 249, MPV 9.4, Neut % (Auto) 44.7, Lymph % (Auto) 38.2, Faulk % (Auto) 9.6 H, Eos % (Auto) 5.1, Baso % (Auto) 1.1, Neut # (Auto) 2.0, Lymph # (Auto) 1.7, Faulk # (Auto) 0.4, Eos # (Auto) 0.2, Baso # (Auto) 0.1, Sodium 138, Potassium 4.9, Chloride 96 L, Carbon Dioxide 36 H, Anion Gap 10.9, BUN 37 H, Creatinine 1.10 H, Estimated Creat Clear 57, Estimated GFR 48 L, Est GFR ( Amer) 59, Glucose 123 H, Lactate 1.3, Calcium 8.9, Total Bilirubin 0.5, AST 28, ALT 16, Alkaline Phosphatase 82, Troponin I < 0.01, NT-Pro-B Natriuret Pep 477 H, Total Protein 6.5, Albumin 3.7, Globulin 2.8, Albumin/Globulin Ratio 1.3, Plasma/Serum Alcohol < 10 09/21/24 00:00: Urine Color Yellow, Urine Appearance Clear, Urine pH 6.0, Ur Specific [place] 1.025, Urine Protein Negative, Urine Glucose (UA) Negative, Urine Ketones Trace, Urine Blood Negative, Urine Nitrate Negative, Urine Bilirubin Negative, Urine Urobilinogen 0.2, Ur Leukocyte Esterase Negative, Urine WBC Occasional, Ur Squamous Epith Cells 3-5, Urine Bacteria 1+, Hyaline Casts 3-5, Fine Granular Casts 3-5, Urine Mucus 1+ 09/21/24 00:07: SARS-CoV-2 (PCR) Not detected, Influenza Type A (PCR) Not detected, Influenza Type B (PCR) Not detected, RSV (PCR) Not detected, Rhinovirus (PCR) Not detected 09/20/24 23:51 09/20/24 23:51 Response Orders (Tests/Meds): ED MEDICATIONS Discontinued Medications Generic Name Dose Route Start Last Admin Trade Name Freq PRN Reason Stop Dose Admin Albuterol/Ipratropium 9 ml 09/20/24 23:30 09/21/24 00:02 Ipratropium/Albuterol 3 Ml Neb IH 09/20/24 23:31 9 ml ONCE ONE Administration Dexamethasone Sodium Phosphate 10 mg 09/21/24 02:22 09/21/24 02:31 Dexamethasone 4mg/Ml 1ml Vial IV 09/21/24 02:23 10 mg ONCE ONE Administration Lactated Ringer's 1,000 mls @ 999 mls/hr 09/21/24 00:37 09/21/24 00:55 Lactated Ringer's 1000 Ml Bag IV 09/21/24 01:37 999 mls/hr .Q1H1M ONE Administration Iopamidol 150 ml 09/21/24 01:46 09/21/24 01:47 Iopamidol-370 (76%);100ml Bottle IV 09/21/24 01:47 150 ml ONCE ONE Administration Lorazepam 1 mg 09/21/24 00:57 09/21/24 01:02 Lorazepam 1mg Tablet PO 09/21/24 00:58 1 mg ONCE ONE Administration Sodium Chloride 10 ml 09/21/24 01:46 09/21/24 01:47 Sodium Chloride 0.9% 10ml Syr (Rad Only) IV 09/21/24 01:47 10 ml ONCE ONE Administration Sodium Chloride 50 ml 09/21/24 01:46 09/21/24 01:47 0.9 % Sodium Chloride 50 Ml Vial IV 09/21/24 01:47 50 ml ONCE ONE Administration ORDERS Category Date Time Status CT abdomen pelvis w con Stat Cat Scan 09/20/24 23:[address] angio chest PE protocol Stat Cat Scan 09/20/24 23:[address] head/brain wo/w con Stat Cat Scan 09/20/24 23:42 Completed BNP [NT Pro Brain Natriuretic Pep.] Stat Lab 09/20/24 23:51 Completed CBC w/Auto Diff [Complete Blood Count Auto Diff] Stat Lab 09/20/24 23:51 Completed CMP [Comprehensive Metabolic Panel] Stat Lab 09/20/24 23:51 Completed Ethanol [Ethyl Alcohol] Stat Lab 09/20/24 23:51 Completed HIV Combo Stat Lab 09/21/24 00:00 Received Hep C Ab with Reflex to RNA Stat Lab 09/20/24 23:51 Received Lactic Acid Stat Lab 09/20/24 23:51 Completed Mini Respiratory Panel Stat Lab 09/20/24 23:30 Completed Trop I [Troponin I] Stat Lab 09/20/24 23:51 Completed Troponin I Q3H Lab 09/21/24 02:45 Ordered Troponin I Q3H Lab 09/21/24 05:45 Ordered UDS [Drug Screen,Urine] Stat Lab 09/20/24 23:44 Ordered Urinalysis and Microscopic Stat Lab 09/21/24 00:00 Completed VBG [Venous Blood Gas] Stat RT 09/20/24 23:43 Completed MDM Narrative Medical Decision Narrative: In summary, this 74-year-old female presents to the emergency department today with concerns of altered mental status. On initial evaluation patient is hemodynamically stable, she is tachypneic and has mild respiratory distress, disoriented, no localizing neurologic deficits, GCS 14, NIH 0, lungs with wheezes and diminished breath sounds, no obvious rhonchi or rales, no peripheral edema. Differential diagnosis includes but is not limited to metastatic disease to the brain, also considered possible transaminitis, fluid overload, kidney dysfunction, electrolyte abnormality, hypercarbia, intoxication, I considered infectious etiology. Based on these concerns, I ordered []. ECG personally interpreted demonstrates normal sinus rhythm, rate 90, normal NC and QTc, no STEMI. Patient received DuoNebs initially for treatment. Her blood pressure dropped while in the ER but she responded to a liter of IV fluids. She was also continuing to be agitated and anxious so she received p.o. Ativan after her blood pressure had improved from fluid resuscitation. Labs personally reviewed demonstrate leukopenia with WBC 4.5 but no neutropenia, anemia with hemoglobin 9.7. VBG demonstrates hypercarbia but normal pH, VBG lactic normal at 2.0, CMP with mild prerenal azotemia, patient is already receiving IV fluids, no actionable electrolyte abnormalities. BNP elevated at 477, initial troponin undetectably low at less than 0.01. UA negative for findings of infection but patient does have casts and mucus present. CT head personally interpreted demonstrates lesion in the left parieto-occipital area concerning for mass with surrounding calcification on my personal interpretation. See radiology read for final interpretation. I am administering IV dexamethasone for management of any potential associated edema. I do not have any previous brain imaging to review at this time and unfortunately [facility] is not working at this time. I personally interpreted CT angiography of the chest as well as CT abdomen pelvis. I appreciate obvious lesions within the lungs, no obvious PE though the contrast timing is poor. On the CT abdomen pelvis, there are findings in the spine concerning for metastatic disease, no obvious liver lesion, no findings of bowel obstruction. See radiology read for final interpretation. On reassessment patient's oxygenation and respiratory status has significantly improved. She is breathing more comfortably on her 4 L nasal cannula and saturating in the low to mid 90s. She is still confused. I recommended to family that patient be transferred to for further evaluation of altered mental status and hallucinations in the setting of metastatic cancer which is managed at [facility] center. They are in agreement with this plan. I discussed this case with transfer center, after reviewing labs and imaging with Dr. Pedroza, she excepted the patient for ED to ED transfer to [facility]. Patient will go via ALS ambulance.
[2024-09-21 01:20] LABS: Bacteria,Urine 1+ /lpf; Mucus,Urine 1+ /lpf; WBC,Urine Occasional #/hpf (0-3)
[2024-09-21] MEDS: IOPAMIDOL-370 (76%);100ML BOTTLE 150 ML IV (01:47)
[2024-09-21] MEDS: SODIUM CHLORIDE 0.9% 10ML SYR (RAD ONLY) 10 ML IV (01:47)
[2024-09-21] MEDS: 0.9 % SODIUM CHLORIDE 50 ML VIAL IV (01:47)
[2024-09-21] MEDS: DEXAMETHASONE 4MG/ML 1ML VIAL 10 MG IV (02:31)
[2024-09-21 02:47] LABS: Amphetamine/Metha Screen,Urine Negative ng/ml (<1000); Barbiturates Screen,Urine Negative ng/ml (<200)
[2024-09-21 02:48] LABS: Benzodiazepines Screen,Urine Negative ng/ml (<200)
[2024-09-21 02:50] LABS: Methadone Screen,Urine Negative ng/ml (<300)
[2024-09-21 02:53] LABS: Opiate Screen,Urine Positive ng/ml (<300); Phencyclidine Screen,Urine Negative ng/ml (<25)
[2024-09-21 03:52] LABS: HIV Combo NEGATIVE (Negative)
[2024-09-21 04:06] LABS: Cannabinoid Screen,Urine Negative ng/ml (<50); Cocaine Screen,Urine Negative ng/ml (<300)
[2024-09-22 07:08] LABS: HCV Ab Non Reactive (Non Reactive)
--- NOTE | 2024-10-07 01:05 | PC.NURSE ---
[facility] faxed over Medical Records this date for this patient, placed into medical records file
== END 2024-09-21 03:28 | disposition short-term general hospital (02) ==
PROVIDERS: Emergency Provider Emergency Medicine
DX: G93.9 Disorder of brain, unspecified (principal); C79.9 Secondary malignant neoplasm of unspecified site; R44.3 Hallucinations, unspecified; R06.89 Other abnormalities of breathing; R41.82 Altered mental status, unspecified; R06.02 Shortness of breath; R06.00 Dyspnea, unspecified
CPT/HCPCS: 51702; 70470; 71275; 74177; 80053; 80307; 80320; 81001; 82803; 83605; 83880; 84484; 85025; 86803; 87389; 87631; 93005; 96361; 96374; 99285; G0480; J1100; J7120; J7620; Q9967